=== PATIENT | male | born 1950 | race Caucasian/White ===

== ENCOUNTER → 2016-04-27 | Outpatient (CLI) | payer OTHER ==
--- NOTE | 2016-04-27 15:53 | NM ---
Nuclear Medicine Parathyroid Imaging History: Hyperparathyroidism Technique: 21.0 mCi of technetium 99m sestamibi was injected intravenously. Immediate and 3 hour imelda yed imaging is performed using planar technique over the neck and upper chest. . Findings: Planar images: There is a focus of abnormally increased retained activity on the delayed im ages compared to the initial images overlying the right lower pole of the thyroid. Impression: A parathyroid adenoma is identified.
== END ==
LOC: FIMAGING 11:47
PROVIDERS: ATTEND Surgery
DX: D35.1 Benign neoplasm of parathyroid gland (principal); E21.0 Primary hyperparathyroidism
CPT/HCPCS: 78070; A9500

== ENCOUNTER → 2016-05-20 | Outpatient (CLI) | payer OTHER ==
--- NOTE | 2016-05-20 09:43 | NM ---
Nuclear Medicine Preoperative Parathyroid Radiotracer Injection Clinical History: 65-year-old male with hyperparathyroidism, anticipating adenectomy. Radiopharmaceutical: 10.8 mCi of IV technetium 99m sestamibi. Comparison Study: Nuclear medicine parathyroid scan, dated April 27, 2016. Findings: Dr. Mike Kaminski requested preoperative radiotracer injection for localization of a parathy roid adenoma seen scintigraphically on a previous study. An injection only was performed, with no add itional imaging acquired today. Impression: Preoperative radiotracer injection for parathyroid adenoma localization.
== END ==
LOC: FIMAGING 08:09
PROVIDERS: ATTEND Radiology Diagnostic Radiology
PROC: CW5 Nuclear Medicine, Anatomical Regions, Nonimaging Nuclear Medicine Probe (ICD-10-PCS; principal; 2016-05-20)
DX: E21.0 Primary hyperparathyroidism (principal); E04.1 Nontoxic single thyroid nodule
CPT/HCPCS: 78808; A9500

== ENCOUNTER → 2016-06-19 | Outpatient (CLI) | payer OTHER ==
[~2016-06-19] MED LIST: IOPAMIDOL (ISOVUE-300) 100 ML BTL IV ONE
[2016-06-19 14:45] LABS: GLOMERULAR FILTRATION RATE > 60
== END ==
LOC: FIMAGING 14:02
PROVIDERS: ATTEND Surgery
DX: E04.1 Nontoxic single thyroid nodule (principal); E21.0 Primary hyperparathyroidism; Z98.890 Other specified postprocedural states
CPT/HCPCS: 70491; 71260; Q9967

== ENCOUNTER 2016-08-18 13:42 | Day surgery (SDC) | payer OTHER ==
[2016-08-18] MEDS ORDERED: LIDOCAINE 1% 30 ML SDV ONE (14:25)
[2016-08-18] MEDS ORDERED: BUPIVACAINE 0.5% 30 ML SDV ONE (14:26)
[2016-08-18] MEDS ORDERED: MIDAZOLAM 2 MG/2 ML VIAL ONE (14:51)
[2016-08-18] MEDS ORDERED: PROPOFOL 200 MG/20 ML VIAL ONE (14:54)
[2016-08-18] MEDS ORDERED: RANITIDINE 50 MG/2 ML VIAL ONE (14:54)
[2016-08-18] MEDS ORDERED: DEXAMETHASONE 4 MG/ML VIAL ONE (14:54)
[2016-08-18] MEDS ORDERED: ROCURONIUM 50 MG/5 ML VIAL ONE (14:55)
[2016-08-18] MEDS ORDERED: ONDANSETRON 4 MG/2 ML VIAL ONE (15:57)
[2016-08-18] MEDS ORDERED: GLYCOPYRROLATE 0.2 MG/1 ML VIAL ONE (16:20)
[2016-08-18] MEDS ORDERED: NEOSTIGMINE METHYLSULFATE 5 MG/5 ML SYR ONE (16:21)
--- NOTE | 2016-08-19 14:53 | GOP ---
[f rep st] OPERATIVE REPORT DATE OF OPERATION: SURGEON: Mike Kaminski MD FRUIT AND VEGETABLE INSPECTOR: Portillo Bond MD ANESTHESIA: General endotracheal anesthesia. PREOPERATIVE DIAGNOSIS: Persistent parathyroidism. POSTOPERATIVE DIAGNOSIS: Persistent parathyroidism. PROCEDURE PERFORMED: Right inferior parathyroidectomy. FINDINGS: Parathyroid adenoma noted on frozen section, 450 g, with hypercellular component. Laboratory studies show a decrease in his parathyroid level from initial of 120 to 63, 38, and then 16.9, at 5, 10, 15 minutes post gland removal. SPECIMENS: Parathyroid adenoma to frozen and then permanent pathology. ESTIMATED BLOOD LOSS: Less than 5 mL. INDICATIONS: This is a 66-year-old gentleman who presents for persistent primary hyperparathyroidism. He had undergone previous surgery in May of 2016 with initial decrease of his counts but then rebound of his PTH to above 100. 4D CAT scan was performed showing subnodular parathyroid adenoma. Previous surgery had shown a hypocellular right inferior parathyroid gland. This may indeed be a fifth gland. DESCRIPTION OF PROCEDURE: Patient was brought into the operating room. After induction of endotracheal anesthesia in supine position, his neck was prepped with chlorhexidine and draped sterilely. Time-out procedure was then performed according to institutional standards. A local anesthetic 0.5% Marcaine was infused in the skin and subcutaneous tissue. Incision was made in the area of previous incision, deepened with electrocautery. Midline raphe was then divided. The thyroid nodule was identified and the thyroid was brought into the field of dissection. Immediately under this was an adenoma which was sent and confirmed by frozen section. Appropriate laboratory studies showed decrease of the parathyroid hormone level. This area was then ensured to be hemostatic. It was closed using 3-0 Vicryl for the midline raphe as well as the platysma. Skin was reapproximated using 4-0 Monocryl. Dermabond was applied. The patient was awakened, extubated, then taken to the recovery room in stable condition. No immediate complications. /[id number]/MODL MTDD
== END 2016-08-18 18:00 | disposition home or self-care (01) ==
LOC: FSGY 13:42
PROVIDERS: ATTEND Surgery
PROC: CW5B1ZZ Nonimaging Nuclear Medicine Probe of Head and Neck using Technetium 99m (Tc-99m) (ICD-10-PCS; 2016-08-18)
PROC: 0GBR0ZZ Excision of Parathyroid Gland, Open Approach (ICD-10-PCS; principal; 2016-08-18 15:00)
DX: E21.0 Primary hyperparathyroidism (principal); D35.1 Benign neoplasm of parathyroid gland; I10 Essential (primary) hypertension; N40.0 Benign prostatic hyperplasia without lower urinary tract symptoms; J45.909 Unspecified asthma, uncomplicated
CPT/HCPCS: 60502; 78808; A9500; J1100; J2250; J2405; J2704; J2710; J2780